=== PATIENT | female | born 1960 | race Two or more races ===

== ENCOUNTER → 2017-01-02 | Outpatient (CLI) | payer OTHER ==
--- NOTE | 2017-01-02 18:02 | HKNOTE ---
DATE OF SERVICE: 01/02/2017 CHIEF COMPLAINT: Right knee pain. HISTORY OF PRESENT ILLNESS: This is a 56-year-old female who is complaining of right knee pain. She states that the pain is mostly on the inside of the right knee. The pain has been worsening over the last few months. She has occasional locking and catching of the right knee. She has instability. She does not use any assistive devices. She wears a knee brace. She takes [id number] pain medications as needed. She has no other complaints. PAST MEDICAL HISTORY: Depression. MEDICATIONS: None. PAST SURGICAL HISTORY: None. SOCIAL HISTORY: She denies any current tobacco or alcohol use. FAMILY HISTORY: Noncontributory. ALLERGIES: NO KNOWN DRUG ALLERGIES. REVIEW OF SYSTEMS: Negative gait, nonantalgic gait. No use of assistive devices. Right knee: Neutral alignment. Tender to palpation over the medial joint line. Nontender over the lateral joint line, 0-130 degrees range of motion. Positive Hortensia. Negative Ramón. Negative anterior drawer. Negative posterior drawer. Stable to varus and valgus stress. A 5/5 quadriceps, tibialis anterior, gastrocnemius-soleus function. Palpable dorsalis pedis pulse. IMAGING PROCEDURE: MRI of the right knee: There is a nondisplaced tear of the posterior horn of the medial meniscus. There is bone marrow edema of the lateral tibial plateau and lateral femoral condyle. There is a small joint effusion. IMPRESSION: A 56-year-old female with a right knee posterior horn medial meniscus tear. PLAN: We will request authorization for right knee arthroscopy with partial medial meniscectomy. She will return in 3 weeks for preoperative evaluation. Dictated By: Gia Leos MD /[email or web address] /Document#: [id number]
== END | disposition home or self-care (01) ==
LOC: HKI 14:15
PROVIDERS: ATTEND Orthopaedic Surgery Adult Reconstructive Orthopaedic Surgery
DX: M23.221 Derangement of posterior horn of medial meniscus due to old tear or injury, right knee (principal)
CPT/HCPCS: G0463